=== PATIENT | male | born 1995 | race Caucasian/White ===

== ENCOUNTER 2017-11-19 00:47 | Emergency (ER) | payer BC ==
[~2017-11-19] VITALS: Ht 182.9 cm; Wt 103.6 kg
[2017-11-19 01:38] LABS: BASO # 0.1 (0.0-0.2); BASO % 0.4 % (0.0-2.0); EOS # 0.3 (0.0-0.7); EOS % 1.2 % (0-4.0); GRAN # 17.7 (1.4-6.5); GRAN % 87.3 % (42.2-75.2); HEMATOCRIT 46.8 % (36.0-47.0); HEMOGLOBIN 16.6 g/dl (12.5-16.1); LYMPH % 4.8 % (20.0-51.0); MEAN CELL VOLUME 87 fl (80.0-95.0); MEAN CORPUSCULAR HEMOGLOBIN 31 pg (26.0-32.0); MEAN CORPUSCULAR HGB CONC 36 g/dl (33.0-37.0); MEAN PLATELET VOLUME 9.7 fl (7.4-10.4); MONO # 1.2 (0.1-0.6); MONO % 5.9 % (1.7-9.3); PLATELET COUNT 297 K/mm3 (130-400); RED BLOOD COUNT 5.41 M/mm3 (4.20-5.60); REDCELL DISTRIBUTION WIDTH-CV 12.3 % (11.5-14.5)
[2017-11-19 01:51] LABS: ALANINE AMINOTRANSFERASE 33 U/L (21-72); ALBUMIN 4.4 gm/dL (3.5-5.0); ALKALINE PHOSPHATASE 75 U/L (50-136); ANION GAP 15 mmol/L (7-16); AST,SGOT 19 U/L (15-37); BILIRUBIN,TOTAL 1.1 mg/dL (0.0-1.0); BLOOD UREA NITROGEN 14 mg/dL (9-20); C-REACTIVE PROTEIN 2.8 mg/dL (0.0-0.9); CALCIUM 9.2 mg/dL (8.4-10.2); CARBON DIOXIDE 20 mmol/L (22-30); CHLORIDE 103 mmol/L (98-107); CREATININE, serum 1.04 mg/dL (0.66-1.25); GLUCOSE 97 mg/dL (74-106); LIPASE 38 U/L (23-300); POTASSIUM 3.6 mmol/L (3.4-5.0); SODIUM 138 mmol/L (137-145); TOTAL PROTEIN 7.5 gm/dL (6.4-8.2)
[2017-11-19 02:00] LABS: TROPONIN-I < 0.012 ng/mL (0.000-0.034)
[2017-11-19 04:36] LABS: COLLECTION METHOD CLEAN CATCH
[2017-11-19 04:45] LABS: MUCOUS Present /lpf; PH 6 (5-8); SQUAMOUS EPITHELIAL None Seen /hpf; URINE APPEARANCE Clear; URINE BACTERIA None Seen /hpf; URINE BILIRUBIN Negative (NEGATIVE); URINE BLOOD Negative (NEGATIVE); URINE COLOR Yellow; URINE GLUCOSE Negative (NEGATIVE); URINE KETONE 1+ (NEGATIVE); URINE LEUKOCYTE ESTERASE Negative (NEGATIVE); URINE NITRATE Negative (NEGATIVE); URINE PROTEIN(semi-quant) Negative (NEGATIVE)
[2017-11-19] MEDS ORDERED: ZOFRAN ODT4 MG PO (05:17)
[2017-11-19] MEDS ORDERED: CEFTIN500 MG PO (05:17)
[2017-11-19 06:58] VITALS: BP 100/50; PULSE 70; TEMP 97.5
[2017-11-20] MEDS ORDERED: NORCO 325 MG-51 TAB PO (06:46)
[2017-11-20] MEDS ORDERED: PHENERGAN 25 TA25 MG PO (06:46)
== END 2017-11-19 07:00 | disposition home or self-care (01) ==
LOC: COL.ER 00:47
PROVIDERS: Emergency Medicine
DX: N39.0 Urinary tract infection, site not specified (principal); J02.0 Streptococcal pharyngitis; R55 Syncope and collapse; J45.909 Unspecified asthma, uncomplicated
CPT/HCPCS: J0561; J1170; J1885; J2405; J2550; J3010; J7030; Q9967

== ENCOUNTER 2017-11-19 22:40 | Emergency (ER) | payer BC ==
[~2017-11-19] VITALS: Ht 182.9 cm; Wt 103.6 kg
[~2017-11-19 22:40] MED LIST: CEFTIN500 MG PO; ZOFRAN ODT4 MG PO
[2017-11-20 00:16] LABS: BASO # 0.1 (0.0-0.2); BASO % 0.4 % (0.0-2.0); EOS # 0.1 (0.0-0.7); EOS % 0.3 % (0-4.0); GRAN # 16.2 (1.4-6.5); GRAN % 89.7 % (42.2-75.2); HEMOGLOBIN 16.4 g/dl (12.5-16.1); LYMPH # 0.5 (1.2-3.4); LYMPH % 2.9 % (20.0-51.0); MEAN CELL VOLUME 87 fl (80.0-95.0); MEAN CORPUSCULAR HEMOGLOBIN 31 pg (26.0-32.0); MEAN CORPUSCULAR HGB CONC 36 g/dl (33.0-37.0); MEAN PLATELET VOLUME 9.7 fl (7.4-10.4); MONO # 1.1 (0.1-0.6); MONO % 6.1 % (1.7-9.3); PLATELET COUNT 287 K/mm3 (130-400); RED BLOOD COUNT 5.29 M/mm3 (4.20-5.60); REDCELL DISTRIBUTION WIDTH-CV 12.2 % (11.5-14.5)
[2017-11-20 00:24] LABS: ALBUMIN 4.1 gm/dL (3.5-5.0); BILIRUBIN,TOTAL 0.8 mg/dL (0.0-1.0); CREATININE, serum 0.97 mg/dL (0.66-1.25); POTASSIUM 3.7 mmol/L (3.4-5.0); TOTAL PROTEIN 7.1 gm/dL (6.4-8.2)
[2017-11-20 04:28] LABS: CSF APPEARANCE CLEAR; CSF COLOR COLORLESS
[2017-11-20 04:39] LABS: GLUCOSE,CSF 56 mg/dL (40-70); TOTAL PROTEIN,CSF 32 mg/dL (15-45)
[2017-11-20 04:59] LABS: CSF RBC 176 /mm3 (0-0)
[2017-11-20 05:01] LABS: CSF APPEARANCE CLEAR; CSF COLOR COLORLESS; CSF RBC 1 /mm3 (0-0)
[2017-11-20 05:28] LABS: CSF MONONUCLEAR 82 % (70-100); CSF POLYMORPHONUCLEAR 18 % (0-6)
[2017-11-20 05:40] LABS: CSF MONONUCLEAR 97 % (70-100); CSF POLYMORPHONUCLEAR 3 % (0-6)
[2017-11-20] MEDS ORDERED: PHENERGAN 25 TA25 MG PO (06:46)
[2017-11-20] MEDS ORDERED: NORCO 325 MG-51 TAB PO (06:46)
[2017-11-20 07:19] VITALS: BP 114/66; PULSE 71; TEMP 97.8
== END 2017-11-20 08:21 | disposition home or self-care (01) ==
LOC: COL.ER 22:40
PROVIDERS: Emergency Medicine; Physician Assistant
DX: S06.0X0A Concussion without loss of consciousness, initial encounter (principal); J02.9 Acute pharyngitis, unspecified; R11.2 Nausea with vomiting, unspecified; X58.XXXA Exposure to other specified factors, initial encounter
CPT/HCPCS: J1100; J1170; J2405; J2765; J7030

== ENCOUNTER 2017-11-24 14:58 | Emergency (ER) | payer BC ==
[~2017-11-24] VITALS: Ht 182.9 cm; Wt 103.6 kg
[~2017-11-24 14:58] MED LIST changes: +NORCO 325 MG-51 TAB PO; +PHENERGAN 25 TA25 MG PO
[2017-11-24 15:13] VITALS: TEMP 97.9
[2017-11-24 15:55] LABS: BASO # 0.1 (0.0-0.2); BASO % 0.8 % (0.0-2.0); EOS # 0.1 (0.0-0.7); EOS % 1.3 % (0-4.0); GRAN # 5.3 (1.4-6.5); GRAN % 61.6 % (42.2-75.2); HEMATOCRIT 46.8 % (36.0-47.0); HEMOGLOBIN 16.3 g/dl (12.5-16.1); LYMPH # 2.2 (1.2-3.4); LYMPH % 26.1 % (20.0-51.0); MEAN CELL VOLUME 88 fl (80.0-95.0); MEAN CORPUSCULAR HEMOGLOBIN 31 pg (26.0-32.0); MEAN CORPUSCULAR HGB CONC 35 g/dl (33.0-37.0); MEAN PLATELET VOLUME 9.6 fl (7.4-10.4); MONO # 0.8 (0.1-0.6); MONO % 8.9 % (1.7-9.3); PLATELET COUNT 339 K/mm3 (130-400); REDCELL DISTRIBUTION WIDTH-CV 12.5 % (11.5-14.5)
[2017-11-24 17:29] VITALS: BP 107/59; PULSE 98
== END 2017-11-24 17:32 | disposition home or self-care (01) ==
LOC: COL.ER 14:58
PROVIDERS: Family Medicine
DX: G97.1 Other reaction to spinal and lumbar puncture (principal)
CPT/HCPCS: J1885; J7030

== ENCOUNTER → 2018-02-14 | Outpatient (CLI) | payer BC | LOC: COL.RAD 13:30 | DX: S53.441A Ulnar collateral ligament sprain of right elbow, initial encounter (principal) | CPT/HCPCS: A9585; Q9967 ==

== ENCOUNTER 2018-12-07 04:18 | Emergency (ER) | payer BC ==
[~2018-12-07] VITALS: Ht 182.9 cm; Wt 102.3 kg
[2018-12-07 04:22] VITALS: TEMP 98.4
[2018-12-07 04:38] LABS: BASO # 0.1 (0.0-0.2); BASO % 0.9 % (0.0-2.0); EOS # 0.2 (0.0-0.7); EOS % 1.8 % (0-4.0); GRAN # 7.5 (1.4-6.5); GRAN % 59.5 % (42.2-75.2); HEMATOCRIT 44.7 % (42.0-52.0); HEMOGLOBIN 15.8 g/dl (13.5-18.0); LYMPH # 3.8 (1.2-3.4); LYMPH % 30.3 % (20.0-51.0); MEAN CELL VOLUME 86 fl (80.0-100.0); MEAN CORPUSCULAR HEMOGLOBIN 30 pg (27.0-31.0); MEAN CORPUSCULAR HGB CONC 35 g/dl (33.0-37.0); MEAN PLATELET VOLUME 9.5 fl (7.4-10.4); MONO # 0.9 (0.1-0.6); MONO % 7.3 % (1.7-9.3); PLATELET COUNT 341 K/mm3 (130-400); RED BLOOD COUNT 5.21 M/mm3 (4.20-5.60); REDCELL DISTRIBUTION WIDTH-CV 12.1 % (11.5-14.5)
[2018-12-07 04:49] LABS: ALBUMIN 4.2 gm/dL (3.5-5.0); BILIRUBIN,TOTAL 0.4 mg/dL (0.0-1.0); CALCIUM 9.2 mg/dL (8.4-10.2); CREATININE, serum 0.95 (0.66-1.25); POTASSIUM 3.9 mmol/L (3.4-5.0); TOTAL PROTEIN 7.1 gm/dL (6.4-8.2)
[2018-12-07 05:19] LABS: COLLECTION METHOD CLEAN CATCH
[2018-12-07 05:44] LABS: PH 6 (5-8); SQUAMOUS EPITHELIAL 0-2 /hpf; URINE APPEARANCE Clear; URINE BACTERIA None Seen /hpf; URINE BILIRUBIN Negative (NEGATIVE); URINE BLOOD Negative (NEGATIVE); URINE COLOR Straw; URINE GLUCOSE Negative (NEGATIVE); URINE KETONE Negative (NEGATIVE); URINE LEUKOCYTE ESTERASE 1+ (NEGATIVE); URINE NITRATE Negative (NEGATIVE); URINE PROTEIN(semi-quant) Negative (NEGATIVE); URINE RBC 0-2 /hpf; URINE UROBILINOGEN Negative (NEGATIVE)
[2018-12-07] MEDS ORDERED: BACTRIM DS 8001 TAB PO (06:44)
[2018-12-07 06:52] VITALS: BP 128/89; PULSE 68
== END 2018-12-07 06:58 | disposition home or self-care (01) ==
LOC: COL.ER 04:18
PROVIDERS: Emergency Medicine
DX: N39.0 Urinary tract infection, site not specified (principal)
CPT/HCPCS: A4216; J0696; J2405; J2765; J3010; J7030; Q9967